=== PATIENT | female | born 1940 | race Caucasian/White ===

== ENCOUNTER 2021-01-19 12:20 | Day surgery (SDC) | payer MEDICARE ==
[~2021-01-19] VITALS: Ht 154.9 cm; Wt 82.8 kg
[2021-01-19] MEDS ORDERED: LEVOTHYROXINE PO (12:56)
[2021-01-19] MEDS ORDERED: OMEP20ER PO (12:57)
[2021-01-19] MEDS ORDERED: TELM40 PO (12:57)
[2021-01-19] MEDS ORDERED: MONT10T PO (12:57)
[2021-01-19] MEDS ORDERED: Aspir 8181 MG PO (12:58)
[2021-01-19] MEDS ORDERED: CALCIUM 1,0001 EACH PO (12:58)
--- NOTE | 2021-01-19 13:58 | NUR ---
01/19/21 1358 Eide Gorman TETRACAINE DROP PLACED IN RT EYE PER DR ORDERS AT 1255. PLEDGET PLACED IN RT EYE PER DR ORDERS AT 1256.
== END 2021-01-19 15:00 | disposition home or self-care (01) ==
LOC: ORSCSDS 12:20
PROVIDERS: Ophthalmology
PROC: 08RJ3JZ Replacement of Right Lens with Synthetic Substitute, Percutaneous Approach (ICD-10-PCS; principal; 2021-01-19 13:30)
DX: H25.11 Age-related nuclear cataract, right eye (principal); I10 Essential (primary) hypertension; J45.909 Unspecified asthma, uncomplicated; K21.9 Gastro-esophageal reflux disease without esophagitis; E03.9 Hypothyroidism, unspecified; Z79.899 Other long term (current) drug therapy; Z79.82 Long term (current) use of aspirin
CPT/HCPCS: J2001; J2250; J3010; J3301; V2632

== ENCOUNTER 2021-01-26 09:33 | Day surgery (SDC) | payer MEDICARE ==
[~2021-01-26] VITALS: Ht 152.4 cm; Wt 83.1 kg
[~2021-01-26 09:33] MED LIST: Aspir 8181 MG PO; CALCIUM 1,0001 EACH PO; LEVOTHYROXINE PO; MONT10T PO; OMEP20ER PO; TELM40 PO
--- NOTE | 2021-01-26 09:52 | NUR ---
01/26/21 0952 Natalya Mckenna TETRACAINE APPLIED IN LEFT EYE AT 0949 PLEDGET AT 0950 PER ORDERS
== END 2021-01-26 11:25 | disposition home or self-care (01) ==
LOC: ORSCSDS 09:33
PROVIDERS: Ophthalmology
PROC: 08RK3JZ Replacement of Left Lens with Synthetic Substitute, Percutaneous Approach (ICD-10-PCS; principal; 2021-01-26 11:00)
DX: H25.12 Age-related nuclear cataract, left eye (principal); I10 Essential (primary) hypertension; J45.909 Unspecified asthma, uncomplicated; K21.9 Gastro-esophageal reflux disease without esophagitis; Z79.899 Other long term (current) drug therapy; E03.9 Hypothyroidism, unspecified; E66.9 Obesity, unspecified; Z68.35 Body mass index [BMI] 35.0-35.9, adult; Z79.82 Long term (current) use of aspirin
CPT/HCPCS: J2001; J2250; J3010; J3301; J7040; V2632